=== PATIENT | female | born 1955 | race African-American/Black ===

== ENCOUNTER 2022-09-18 09:20 | Day surgery (SDC) | payer OTHER ==
[2022-09-14 11:39] VITALS: BMI 16.1
[2022-09-18 09:53] VITALS: RESP 18
[2022-09-18] MEDS ORDERED: PROPOFOL 60 ML ONE (10:48)
[2022-09-18 11:10] VITALS: TEMP 97
[2022-09-18 11:36] VITALS: BP 138/60; PULSE 63
== END 2022-09-18 11:46 | disposition home or self-care (01) ==
LOC: FASU-ENDO 09:20
PROVIDERS: ATTEND Internal Medicine Gastroenterology
PROC: 0DJD8ZZ Inspection of Lower Intestinal Tract, Via Natural or Artificial Opening Endoscopic (ICD-10-PCS; principal; 2022-09-18 10:50)
DX: Z12.11 Encounter for screening for malignant neoplasm of colon (principal)